=== PATIENT | male | born 1935 | race Caucasian/White ===

== ENCOUNTER 2020-04-15 05:31 | Day surgery (SDC) | payer MEDICARE ==
[2020-04-15] MEDS ORDERED: Sodium Chloride 0.9% 1,000 ML IV SCH (06:15)
[2020-04-15] MEDS ORDERED: fentaNYL 100 MCG/2 ML SDV ONE (07:06)
[2020-04-15] MEDS ORDERED: Propofol 200 MG/20 ML SDV ONE (07:06)
[2020-04-15] MEDS ORDERED: Midazolam 1 MG/ML 2 ML SDV ONE (07:06)
--- NOTE | 2020-04-15 09:48 | PROC ---
DATE OF PROCEDURE: SURGEON: Marcos Rick MD INDICATION: Jeremiah is an 84-year-old male who comes in for a colonoscopy. He came into the office last week having bloody stools, passing significant amount of red blood. He has never had a colonoscopy before. He comes in for colonoscopy. This is done as an outpatient in the OR. PROCEDURE IN DETAIL: Anesthesia was given by nurse management advisor. During the procedure, we used 2 mg of Versed, 100 mcg of fentanyl, and 130 mg of propofol. The Olympus 180AL scope was used, was placed into the rectum and advanced under direct vision. We did evaluation of the prostate. The prostate was grade 3/6, symmetrical, and soft. The tube was placed into the rectum and advanced under direct vision. At 25 cm, noted a mass. We did not get past that and eventually got to the cecum using the turbo on the scope as well as external pressure from the nurse. Upon retraction of the tube, noted no lesions or ulcerations. No abnormality until we got at 25 cm. This, I am sure, is a carcinoma. This was biopsied. Then, we fully retracted the tube, found another lesion at 5 cm. This was biopsied as well. The tube was removed. The patient tolerated the procedure well. Preop: GI blood. Postop: Lesion at 25 cm and 5 cm both appear to be carcinoma. Biopsy is pending. I feel that a colon resection is imperative. I will wait for the biopsies. Marcos Rick MD /[id number]
== END 2020-04-15 09:01 | disposition home or self-care (01) ==
LOC: JP.SDS 05:31
PROVIDERS: ATTEND Internal Medicine
DX: C18.9 Malignant neoplasm of colon, unspecified (principal); D12.8 Benign neoplasm of rectum; I11.0 Hypertensive heart disease with heart failure; I50.9 Heart failure, unspecified; Z87.891 Personal history of nicotine dependence
CPT/HCPCS: 45380; J2250; J2704; J3010; J7030; 88305; 88341

== ENCOUNTER 2020-04-27 10:26 | Inpatient (IN) | payer MEDICARE ==
[~2020-04-27 10:26] MED LIST: Bupivacaine 0.5% 50 ML MDV ONE; Lidocaine 1% with EPINEPHrine 1:100,000 50 ML MDV ONE; Meropenem 500 MG SDV ONE
[2020-04-27] MEDS ORDERED: Scopolamine 1.5 MG Transdermal Patch TOP SCH (11:00)
[2020-04-27] MEDS ORDERED: Acetaminophen 500 MG Tab PO ONE (11:00)
[2020-04-27] MEDS ORDERED: Dextrose 5%-Lactated Ringers 1,000 ML IV SCH (11:30)
[2020-04-27] MEDS ORDERED: Neostigmine Methylsulfate 1 MG/ML 5 ML Syringe ONE (11:53)
[2020-04-27] MEDS ORDERED: Rocuronium 50 MG/5 ML Vial ONE ×2 (11:53→18:59)
[2020-04-27] MEDS ORDERED: Glycopyrrolate 0.2 MG/ML 5 ML MDV ONE (11:53)
[2020-04-27] MEDS ORDERED: Succinylcholine 200 MG/10 ML MDV ONE (11:53)
[2020-04-27] MEDS ORDERED: Ondansetron 4 MG/2 ML SDV ONE (11:53)
[2020-04-27] MEDS ORDERED: Propofol 200 MG/20 ML SDV ONE (11:53)
[2020-04-27] MEDS ORDERED: fentaNYL 250 MCG/5 ML SDV ONE (11:53)
[2020-04-27] MEDS ORDERED: Dexamethasone 4 MG/ML SDV ONE (11:53)
[2020-04-27] MEDS ORDERED: Naloxone 0.4 MG/ML SDV IVPUSH PRN (12:00)
[2020-04-27] MEDS ORDERED: Sodium Chloride 0.9% 10 ML ONE (12:39)
[2020-04-27] MEDS ORDERED: cefOXitin 2 GM in Sodium Chloride 0.9% 50 ML IV ONE (12:45)
[2020-04-27] MEDS ORDERED: Lactated Ringers 1,000 ML ONE (13:13)
[2020-04-27] MEDS ORDERED: Ondansetron 4 MG/2 ML SDV IVPUSH PRN (17:00)
[2020-04-27] MEDS ORDERED: hydrOXYzine HCL 100 MG/2 ML SDV IM PRN (17:00)
[2020-04-27] MEDS: SCOPOLAMINE PATCH CHECK TOP SCH (17:19)
[2020-04-27] MEDS: Dextrose 5%-Lactated Ringers 1,000 ML IV SCH (17:23)
[2020-04-27] MEDS: cefOXitin 2 GM in Sodium Chloride 0.9% 50 ML IV SCH (17:24)
[2020-04-27] MEDS: Pantoprazole 40 MG Vial IVPUSH SCH (17:26)
[2020-04-27] MEDS: Acetaminophen 325 MG Tab PO SCH (17:27)
[2020-04-27] MEDS: fentaNYL 2,500 MCG in Sodium Chloride 0.9% 200 ML EPIDUR SCH (17:38)
[2020-04-27] MEDS: Tamsulosin 0.4 MG Cap.ER PO SCH (20:22)
[2020-04-27] MEDS: Carvedilol 12.5 MG Tab PO SCH (20:22)
[2020-04-27] MEDS: Albuterol/Ipratropium 3.0-0.5 MG/3 ML Neb Soln NEB PRN (20:57)
[2020-04-28] MEDS ORDERED: Furosemide 20 MG/2 ML VIAL IVPUSH ONE (00:15)
[2020-04-28] MEDS: cefOXitin 2 GM in Sodium Chloride 0.9% 50 ML IV SCH ×2 (00:19→04:59)
[2020-04-28] MEDS: Acetaminophen 325 MG Tab PO SCH ×5 (00:21→23:59)
[2020-04-28] MEDS: Dextrose 5%-Lactated Ringers 1,000 ML IV SCH ×3 (00:22→18:11)
[2020-04-28] MEDS: fentaNYL 2,500 MCG in Sodium Chloride 0.9% 200 ML EPIDUR SCH (07:37)
[2020-04-28] MEDS: Bisacodyl 5 MG Tab PO SCH ×2 (08:13→20:24)
[2020-04-28] MEDS: Spironolactone 25 MG Tab PO SCH (08:14)
[2020-04-28] MEDS: Aspirin 325 MG Tab.EC PO SCH (08:14)
[2020-04-28] MEDS: Sennosides 8.6 MG Tab PO SCH ×2 (08:14→20:30)
[2020-04-28] MEDS: Carvedilol 12.5 MG Tab PO SCH ×2 (08:14→20:28)
[2020-04-28] MEDS: SCOPOLAMINE PATCH CHECK TOP SCH (08:17)
[2020-04-28] MEDS: Ibuprofen 400 MG Tab PO SCH ×3 (08:31→20:26)
[2020-04-28] MEDS ORDERED: Furosemide 40 MG/4 ML VIAL IVPUSH ONE ×2 (10:00→20:00)
--- NOTE | 2020-04-28 11:40 | CRLCR ---
Indication: Cough. Low oxygen saturation. Technique: Chest 2 views Comparison: None Findings: Cardiovascular and mediastinum: Heart size and vasculature are normal in caliber and appearance. Lungs and pleural spaces: Small infiltrate may be present in the lateral right lung base. Mild bibasilar scarring or atelectasis. Upper lungs are clear. No significant effusion and no pneumothorax. Bones and soft tissues: No significant findings. Impression: Possible right lower lobe pneumonia. Dictated by Eugenio Edwards MD @ 04/28/2020 11:38:57 AM Dictated by: Eugenio Edwards MD @ 04/28/2020 11:39:03 (Electronically Signed)
[2020-04-28] MEDS ORDERED: Levofloxacin/Dextrose 5%-Water 500 MG in Premix Bag 1 BAG IV SCH (13:00)
[2020-04-28] MEDS: Piperacillin/Tazobactam/Dext 3.375 GM in Premix Bag 1 BAG IV SCH ×3 (13:38→23:59)
[2020-04-28] MEDS: Albuterol/Ipratropium 3.0-0.5 MG/3 ML Neb Soln NEB PRN (14:19)
[2020-04-28] MEDS: Pantoprazole 40 MG Vial IVPUSH SCH (18:15)
[2020-04-28] MEDS: Tamsulosin 0.4 MG Cap.ER PO SCH (20:26)
[2020-04-29] MEDS: Ibuprofen 400 MG Tab PO SCH (02:17)
[2020-04-29] MEDS: Dextrose 5%-Lactated Ringers 1,000 ML IV SCH ×3 (05:07→23:13)
[2020-04-29] MEDS: Acetaminophen 325 MG Tab PO SCH ×3 (05:07→18:11)
[2020-04-29] MEDS: Albuterol/Ipratropium 3.0-0.5 MG/3 ML Neb Soln NEB PRN (05:07)
[2020-04-29] MEDS: Piperacillin/Tazobactam/Dext 3.375 GM in Premix Bag 1 BAG IV SCH ×3 (05:41→18:11)
[2020-04-29] MEDS ORDERED: Meropenem 500 MG SDV ONE (06:35)
[2020-04-29] MEDS ORDERED: Lidocaine 1% with EPINEPHrine 1:100,000 50 ML MDV ONE (06:35)
[2020-04-29] MEDS ORDERED: Bupivacaine 0.5% 50 ML MDV ONE (06:35)
[2020-04-29] MEDS ORDERED: Propofol 200 MG/20 ML SDV ONE (06:56)
[2020-04-29] MEDS ORDERED: Ropivacaine 30 ML, dexAMETHasone 8 MG, EPINEPHrine 0.4 MG, Sodium Chloride 0.9% 47.6 ML NERVRT SCH ×4 (07:15)
[2020-04-29] MEDS ORDERED: Albuterol/Ipratropium 3.0-0.5 MG/3 ML Neb Soln NEB ONE (07:49)
[2020-04-29] MEDS ORDERED: Furosemide 20 MG/2 ML VIAL ONE (08:52)
[2020-04-29] MEDS ORDERED: Albuterol/Ipratropium 3.0-0.5 MG/3 ML Neb Soln INH PRN (08:56)
[2020-04-29] MEDS ORDERED: Furosemide 20 MG/2 ML VIAL IV ONE ×2 (09:00→16:00)
[2020-04-29] MEDS ORDERED: FLU Vacc QV2020-21(65YR UP)/PF 240 MCG/0.7 ML Syringe IM ONE (09:00)
--- NOTE | 2020-04-29 09:02 | PN ---
DATE OF SERVICE: 04/29/2020 SUBJECTIVE: Jeremiah is n.p.o. He will be going down for delayed primary closure. Vital signs have been stable. Pain is controlled. He has no questions or concerns. OBJECTIVE: GENERAL: Jeremiah is a pleasant 85-year-old male. VITAL SIGNS: TPR is 96.3; 87; 18; blood pressure 100/54. HEENT: Negative. NECK: Supple. HEART: Regular rate and rhythm. LUNGS: Clear. ABDOMEN: Dressings dry and intact. Abdominal binder is on. EXTREMITIES: Without peripheral edema. ASSESSMENT: Exploratory laparotomy with: 1. Rectosigmoid colon resection. 2. Mobilization of omentum into pelvis. POSTOPERATIVE DIAGNOSES: 1. Distal sigmoid colon cancer. 2. Distal colon sessile polyp. 3. Date of procedure: 04/27/2020. Surgeon: Jesus Ortega MD. PLAN: Orders will be written after delayed primary closure. Marbella Neil PA-C /[id number]
[2020-04-29] MEDS: Spironolactone 25 MG Tab PO SCH (09:13)
[2020-04-29] MEDS: Aspirin 325 MG Tab.EC PO SCH (09:15)
[2020-04-29] MEDS: Bisacodyl 5 MG Tab PO SCH ×2 (09:15→21:19)
[2020-04-29] MEDS: SCOPOLAMINE PATCH CHECK TOP SCH (09:16)
[2020-04-29] MEDS: Sennosides 8.6 MG Tab PO SCH ×2 (09:17→21:23)
[2020-04-29] MEDS: Carvedilol 12.5 MG Tab PO SCH ×2 (09:18→21:19)
[2020-04-29] MEDS: Albuterol/Ipratropium 3.0-0.5 MG/3 ML Neb Soln NEB SCH ×3 (10:04→21:22)
[2020-04-29] MEDS: Levofloxacin/Dextrose 5%-Water 250 MG in Premix Bag 1 BAG IV SCH (13:45)
[2020-04-29] MEDS: Pantoprazole 40 MG Vial IVPUSH SCH (18:11)
--- NOTE | 2020-04-29 19:26 | PN ---
DATE OF SERVICE: 04/28/2020 The patient has been afebrile with stable vital signs. Oxygenation remains somewhat marginal, but his preoperative oxygenation had an O2 saturation in the low 90s on room air. We will continue to work with maximizing pulmonary toilet. His urine output is a little bit low overnight, and we will check some labs this morning and back down the IV rate later in the day. Otherwise, he is getting good pain control with the epidural, we will leave that in for today. Plan to proceed with a delayed primary closure of the abdominal incision tomorrow, perhaps getting the epidural out at that time. If he is getting extremely good pain control, I will leave that in an extra day along with Rocha catheter, but we will make that decision tomorrow morning at the time of the closure. Jesus Ortega MD /[id number]
--- NOTE | 2020-04-29 19:32 | PN ---
DATE OF SERVICE: 04/29/2020 The patient has been afebrile with stable vital signs. We did turn off the epidural catheter overnight and this seemed to help urine output and his creatinine did bump up to 2.1. His BNP is also quite high and we will give him some Lasix this morning and repeat it this afternoon. Otherwise, uneventful wound closure. He has a little bit of wheezing and we will start some scheduled DuoNebs as opposed to p.r.n. and restart the regular diet. Check some labs in the morning. We will leave the Rocha catheter in for today to monitor urine output. Jesus Ortega MD /[id number]
[2020-04-29] MEDS: Tamsulosin 0.4 MG Cap.ER PO SCH (21:19)
[2020-04-30] MEDS: Piperacillin/Tazobactam/Dext 3.375 GM in Premix Bag 1 BAG IV SCH ×4 (00:13→17:42)
[2020-04-30] MEDS: Acetaminophen 325 MG Tab PO SCH ×3 (00:29→05:53)
--- NOTE | 2020-04-30 04:37 | CRLCR ---
INDICATION: Shortness of breath, possible pneumonia TECHNIQUE: PA and lateral views of the chest COMPARISON: PA and lateral chest radiographs 04/28/2020 FINDINGS: There is stable elevation of the right hemidiaphragm. Subtle right lung base opacity is slightly improved. Airspace opacity is noted in the left lung base. There is no pleural effusion or pneumothorax. The cardiomediastinal silhouette is stable. There is nonspecific mild air distention of the visualized colon. IMPRESSION: 1. Subtle right lung base opacity is slightly improved, may represent atelectasis. Mild left lung base opacity. Consider further evaluation with CT. 2. Nonspecific air distention of the hepatic flexure of the colon. Dictated by Samara Haynes MD @ Apr 30 2020 4:35AM Signed by Dr. Samara Haynes @ Apr 30 2020 4:35AM
[2020-04-30] MEDS ORDERED: Furosemide 40 MG/4 ML VIAL IVPUSH ONE (06:35)
[2020-04-30] MEDS: Albuterol/Ipratropium 3.0-0.5 MG/3 ML Neb Soln NEB SCH ×4 (07:18→21:11)
[2020-04-30] MEDS ORDERED: Acetaminophen 325 MG Tab PO PRN (07:33)
[2020-04-30] MEDS: Sennosides 8.6 MG Tab PO SCH ×2 (08:34→21:18)
[2020-04-30] MEDS: Spironolactone 25 MG Tab PO SCH (08:34)
[2020-04-30] MEDS: Aspirin 325 MG Tab.EC PO SCH (08:34)
[2020-04-30] MEDS: Bisacodyl 5 MG Tab PO SCH ×2 (08:34→21:18)
[2020-04-30] MEDS: Carvedilol 12.5 MG Tab PO SCH ×2 (08:34→21:14)
[2020-04-30] MEDS: SCOPOLAMINE PATCH CHECK TOP SCH (08:35)
--- NOTE | 2020-04-30 08:45 | PN ---
DATE OF SERVICE: 04/30/2020 SUBJECTIVE: Jeremiah had delayed primary closure yesterday. He did pass a red bloody bowel movement. Vital signs have been stable. He reports feeling weak. Pain is controlled. Labs this morning, white count is 11.7, hemoglobin is 12.5, potassium 4.4. His BMP went up to 6514, magnesium is 1.6. He does report that he is short of breath. Lasix 40 mg IV was given right after report. REVIEW OF SYSTEMS: Remainder of review of systems negative for any pertinent positives and negatives. OBJECTIVE: GENERAL: Jeremiah is a pleasant 85-year-old male. He is alert. Reports being short of breath. VITAL SIGNS: TPR at 0700, 97.9, 97, 20, blood pressure 145/68. O2 is 88% on 5 L of O2. HEENT: Negative. NECK: Supple. HEART: Regular rate and rhythm. LUNGS: Clear, but respirations are rapid and shallow. ABDOMEN: Dressings dry and intact. AGUEDA drains have put out 285 and 485 respectively of a light pink drainage. EXTREMITIES: Without peripheral edema. ASSESSMENT: 1. Delayed primary closure, 04/29/2020. 2. Exploratory laparotomy with: a. Rectosigmoid colon resection. b. Mobilization of omentum into pelvis. POSTOPERATIVE DIAGNOSES: 1. Distal sigmoid colon cancer. 2. Distal colon sessile polyp. 3. Date of procedure: 04/27/2020. Surgeon: Jesus Ortega MD. PLAN: 1. Lasix 20 mg at 1400. 2. Leave Rocha catheter in for accurate intake and output. 3. Check CBC, CMP, BNP, and phos in a.m. 4. Discontinue both AGUEDA drains. 5. Change Tylenol to p.r.n. 6. Magnesium 2 g IV q.6 hours x48 hours. 7. We will evaluate p.r.n. or in a.m. 8. Ask in a.m. regarding antibiotic therapy, appears not to be pneumonia, but will continue antibiotic as a clinical course. Marbella Neil PA-C /[id number]
[2020-04-30] MEDS: Magnesium Sulfate/Water 2 GM in Premix Bag 1 BAG IV SCH ×3 (09:10→21:07)
[2020-04-30] MEDS: Pantoprazole 40 MG Tab.CR PO SCH (11:32)
[2020-04-30] MEDS ORDERED: Dextrose 5%-Lactated Ringers 1,000 ML IV SCH (12:23)
[2020-04-30] MEDS ORDERED: Furosemide 20 MG/2 ML VIAL IVPUSH ONE (14:00)
[2020-04-30] MEDS: Levofloxacin/Dextrose 5%-Water 250 MG in Premix Bag 1 BAG IV SCH (14:33)
[2020-04-30] MEDS ORDERED: FLU Vacc QV2020-21(65YR UP)/PF 240 MCG/0.7 ML Syringe IM ONE (15:00)
[2020-04-30] MEDS: Tamsulosin 0.4 MG Cap.ER PO SCH (21:16)
[2020-05-01] MEDS: Piperacillin/Tazobactam/Dext 3.375 GM in Premix Bag 1 BAG IV SCH ×2 (00:45→05:48)
[2020-05-01] MEDS: Magnesium Sulfate/Water 2 GM in Premix Bag 1 BAG IV SCH ×4 (02:46→22:13)
[2020-05-01] MEDS ORDERED: Furosemide 20 MG/2 ML VIAL IVPUSH STA (06:57)
[2020-05-01] MEDS: SCOPOLAMINE PATCH CHECK TOP SCH (08:07)
[2020-05-01] MEDS: Carvedilol 12.5 MG Tab PO SCH ×2 (08:09→22:16)
[2020-05-01] MEDS: Spironolactone 25 MG Tab PO SCH (08:09)
[2020-05-01] MEDS: Aspirin 325 MG Tab.EC PO SCH (08:09)
[2020-05-01] MEDS: Pantoprazole 40 MG Tab.CR PO SCH (08:09)
[2020-05-01] MEDS: Albuterol/Ipratropium 3.0-0.5 MG/3 ML Neb Soln NEB SCH ×4 (08:14→22:19)
[2020-05-01] MEDS: Potassium Chloride 20 MEQ Tab.ER PO SCH (09:07)
--- NOTE | 2020-05-01 10:15 | PN ---
DATE OF SERVICE: 05/01/2020 SUBJECTIVE: Jeremiah is a pleasant 85-year-old male. He has been afebrile. He currently is sitting up in the chair. Oral intake 896. Urine output via Rocha catheter is 4300. AGUEDA drains put out 90 mL and 40 mL respectively. He has had 5 bowel movements. Vital signs have been afebrile with his O2 saturations by pulse oximetry on room air at rest is 87%. He has been on 2 L to 3 L in the past 24 hours and O2 saturations by pulse oximetry is 90% to 92%. He has been diuresed, and this has helped with his symptomatic shortness of breath. He does have COPD and congestive heart failure with an ejection fraction of 28%. LABORATORY DATA: Hemoglobin 13.1, sodium 135, his creatinine is 2, GFR is 32, and BNP is down from 6514 to 3771. REVIEW OF SYSTEMS: Remainder of review of systems is negative for any pertinent positives and negatives. OBJECTIVE: GENERAL: Jeremiah is a pleasant 85-year-old male. He is sitting up in the chair as stated. Alert, orientated. GENERAL: TPR at 0700 is 96.9, 94, and 18. Blood pressure 113/72, O2 is 92% by pulse oximetry on 3 L of nasal cannula. HEENT: Negative. NECK: Supple. HEART: Regular rate and rhythm. LUNGS: Clear. ABDOMEN: Dressing dry and intact. AGUEDA drains x2 intact. EXTREMITIES: Without peripheral edema. ASSESSMENT: 1. Delayed primary closure 04/29/2020. 2. Exploratory laparotomy with: a. Rectosigmoid colon resection. b. Mobilization of omentum into pelvis. 3. Postoperative diagnoses: a. Distal sigmoid colon cancer. b. Distal colon sessile polyp. c. Date of procedure 04/27/2020. Surgeon: Jesus Ortega MD. 4. Congestive heart failure, ejection fraction 28%. 5. Chronic obstructive pulmonary disease. PLAN: 1. Evaluate for home O2. The patient does qualify due to O2 saturations by pulse oximetry of 87% at rest on room air. 2. Plan discharge in a.m. with home health care. 3. Discontinue Rocha catheter. 4. Discontinue Colace and Dulcolax tablets. 5. Saline lock IV. 6. Lasix 20 mg IV now and repeat 20 mg of IV at 1400. 7. Potassium chloride 40 mEq orally. 8. Check CBC, CMP, phos, and BNP in a.m. 9. Continue use of incentive spirometer. 10.We will evaluate p.r.n. or in a.m. Marbella Neil PA-C /[id number]
[2020-05-01] MEDS ORDERED: Furosemide 20 MG/2 ML VIAL IVPUSH ONE ×2 (14:00)
[2020-05-01] MEDS: Tamsulosin 0.4 MG Cap.ER PO SCH (22:16)
[2020-05-02] MEDS: Magnesium Sulfate/Water 2 GM in Premix Bag 1 BAG IV SCH (03:02)
[2020-05-02] MEDS: Albuterol/Ipratropium 3.0-0.5 MG/3 ML Neb Soln NEB SCH ×4 (07:51→20:54)
[2020-05-02] MEDS ORDERED: Potassium Chloride 20 MEQ Tab.ER PO ONE ×2 (09:00→14:00)
[2020-05-02] MEDS ORDERED: Tamsulosin 0.4 MG Cap.ER PO ONE (09:00)
[2020-05-02] MEDS: SCOPOLAMINE PATCH CHECK TOP SCH (09:21)
[2020-05-02] MEDS: Pantoprazole 40 MG Tab.CR PO SCH (09:22)
[2020-05-02] MEDS: Aspirin 325 MG Tab.EC PO SCH (09:22)
[2020-05-02] MEDS: Carvedilol 12.5 MG Tab PO SCH ×2 (09:22→20:50)
[2020-05-02] MEDS: Potassium Chloride 20 MEQ Tab.ER PO SCH (09:22)
[2020-05-02] MEDS: Spironolactone 25 MG Tab PO SCH (09:23)
[2020-05-02] MEDS: Furosemide 20 MG/2 ML VIAL IVPUSH SCH ×2 (09:23→17:57)
[2020-05-02] MEDS: Tamsulosin 0.4 MG Cap.ER PO SCH (20:50)
[2020-05-03] MEDS: Albuterol/Ipratropium 3.0-0.5 MG/3 ML Neb Soln NEB SCH ×2 (07:25→10:32)
[2020-05-03] MEDS ORDERED: Furosemide 20 MG/2 ML VIAL IVPUSH ONE (09:00)
[2020-05-03] MEDS ORDERED: Tamsulosin 0.4 MG Cap.ER PO ONE (09:00)
[2020-05-03] MEDS: Potassium Chloride 20 MEQ Tab.ER PO SCH (09:24)
[2020-05-03] MEDS: Pantoprazole 40 MG Tab.CR PO SCH (09:24)
[2020-05-03] MEDS: Carvedilol 12.5 MG Tab PO SCH (09:25)
[2020-05-03] MEDS: Spironolactone 25 MG Tab PO SCH (09:25)
[2020-05-03] MEDS: Aspirin 325 MG Tab.EC PO SCH (09:25)
--- NOTE | 2020-05-03 12:26 | PN ---
DATE OF SERVICE: 05/02/2020 The patient has been afebrile with stable vital signs. Breathing looks like it has been better. BNP is down to 2579, which I suspect may be more or less near his baseline. he was agitated regarding difficulty with initiating urination. Bladder scan had in excess of 800 mL and Rocha catheter was placed and he is feeling much more comfortable. We will increase his Flomax to b.i.d. dose and try getting the Rocha catheter out tomorrow. If he is still retaining urine, we may be able to send him home with a catheter in place for a few days. Otherwise, we will continue to augment some diuresis and supplement his potassium orally. Jesus Ortega MD /[id number]
--- NOTE | 2020-05-03 12:38 | OR ---
DATE OF PROCEDURE: 04/27/2020 SURGEON: Jesus Ortega MD PREOPERATIVE DIAGNOSES: 1. Sigmoid colon carcinoma. 2. Polypoid lesion in the lower rectum. POSTOPERATIVE DIAGNOSES: 1. Sigmoid colon carcinoma. 2. Polypoid lesion in the lower rectum. OPERATIVE PROCEDURES: Exploratory laparotomy with: 1. Rectosigmoid colon resection with coloproctostomy (50025). 2. Mobilization of omentum into the pelvis to displace small bowel in the event of indications for postoperative radiation treatment (18396). ANESTHESIA: General plus epidural. CORRECTIONAL OFFICER CHIEF: Marbella Neil PA-C INDICATIONS FOR PROCEDURE: This is an 85-year-old male recently presenting with some rectal bleeding. Colonoscopy was obtained, which showed a carcinoma in the [id number] sigmoid colon. The patient also had a polypoid lesion fairly low within the rectum, which is quite mobile and likely related to a polyp rather than an invasive carcinoma. The plan will be to proceed with low anterior resection with coloproctostomy. We will obviously aim to get below the polypoid lesion seen distally. Otherwise, potential risks of the procedure, including bleeding, infection, and leaks from GI tract closure that might require conversion to a colostomy as well as the possibility of cardiopulmonary, septic, or hemorrhagic complications leading to , were discussed, and the patient wishes to proceed. DETAILS OF PROCEDURE: The patient was taken to the operating room after general endotracheal anesthesia was induced. A Rocha catheter was inserted. A digital rectal exam was undertaken at that point, which confirmed the location of the polypoid lesion. This was not palpable preoperatively when the patient was awake but was easily palpable with the patient now relaxed and appeared to be very mobile. With regard to the underlying musculature, appeared to be remaining mucosal lesion amenable to resection with a relatively small margin distal to it. With the patient in lithotomy position, the abdomen was prepped and draped. A midline incision from the umbilicus down to the pubis was made and carried down through the full thickness of the abdominal wall. Upon entering the peritoneal cavity, general exploration was undertaken. The mass in the junction near the distal portions of the sigmoid colon was easily palpable. There did not appear to be significant lymphadenopathy within the superior hemorrhoidal chain leading to that area or within the remainder of the mesentery or periaortic area. There was no evidence of peritoneal carcinomatosis, and the liver appeared to be free of any metastatic disease. At this point, roughly 15 cm proximal to the mass, the sigmoid colon was divided with a ARLENE stapler. The mesentery was then sequentially freed up and divided with ARLENE julien, taking any superior hemorrhoidal vessel and its associated nodes flush with its take-off from the left colic artery. This then allowed a mesorectal-type dissection further into the rectum posteriorly and laterally with lateral stalks being divided with ARLENE julien as well. We then came down to the lower rectum, and the rectum was mobilized circumferentially to the level of the pelvic floor. The digital rectal exam was then once again performed. The mucosal lesion tended to prolapse behind where the staple line would go across. Given this, a small enterotomy was made in the rectum, and this was grasped from that vantage point, grasping the polyp and pulling it upward. This then allowed a staple line to be configured below that, and that was constructed with several firings of ARLENE black loads, and then the specimen removed from the field. Endoscopic examination of the distal-most rectum below the staple line showed evidence of a persistent polyp disease and the specimen off the field was then opened, and a small margin of normal-appearing mucosa was present below the mucosal lesion, indicating a satisfactory margin had been established. At this point, the anvil of a 28 mm EEA stapler was placed in the nonopened end of the sigmoid colon, which was then re-stapled and the anvil brought out through the most dependent portion of that, and the peritoneum to the lateral aspect of the more proximal sigmoid colon was divided, which allowed the divided sigmoid colon to drop into the pelvis with no tension, more or less laid easily up against the divided rectum through the transanal portion of the main body, the EEA stapler was brought up and connected to the anvil and fired, thus creating a coloproctostomy. The distal staple line was then sent separately as a final distal margin. At this point, no further problems were noted. The anastomosis was reinforced with some fibrin sealant and irrigated with a meropenem-containing saline solution. The endoscope was passed into the rectum, and with air being insufflated into the rectum, the anastomosis was easily visualized, and there were no air bubbles noted, i.e., anastomosis appeared to be intact. Two Mark Anthony-Sanchez drains were then placed through stab wounds, one on the right and one on the left abdomen, taken down and across the coloproctostomy. The omentum was mobilized down into the pelvis as well in the event that at some point the patient may require postoperative radiation treatment, and the omentum was tacked down there with some 3-0 Vicryl stitch. The posterior peritoneum as well as the was then closed with a #2 Vicryl stitch and the anterior fascia with a #2 Vicryl stitch as well. The skin and subcutaneous tissue were felt to be high risk for wound infection and were, therefore, packed open with iodoform gauze for planned delayed primary closure in 48 to 72 hours. Of note, prior to the general anesthetic, the patient had an epidural catheter placed, and the epidural infusion was maintained through the procedure. Physician assistant media buyer Marbella Neil played an essential role in assisting in this case, helping to position the patient and retract structures as needed as well as suturing and stapling when indicated. Her presence improved patient safety and decreased operative time. Jesus Ortega MD /[id number]
--- NOTE | 2020-05-03 12:56 | DISCH ---
FINAL DIAGNOSES: 1. Sigmoid colon carcinoma. 2. Adenomatous polyp distal rectum. 3. Advanced chronic obstructive pulmonary disease. 4. Chronic congestive heart failure. 5. Postoperative urinary retention. OPERATIVE PROCEDURES: Done on 04/27, exploratory laparotomy with: 1. Rectosigmoid colon resection. 2. Mobilization of omentum into pelvis. 3. Then on 04/29, delayed primary closure of abdominal incision. SUMMARY: This is an 85-year-old, recently presenting with some rectal bleeding. Colonoscopy found a carcinoma in the mid to distal sigmoid colon and a secondary adenomatous polyp in the distal rectum. The patient underwent resection of those on 04/27. The final pathology showed the primary tumor which was near the junction of the mid and distal thirds of the sigmoid colon, it was full-thickness and noted to be pericolonic fat, but all of the above lymph nodes were negative for metastatic disease. He had no evidence of metastatic disease elsewhere in the abdomen. The margin on the distal polyp was cleared and that remained an adenomatous polyp on final pathology, i.e., it was not a carcinoma. Postoperatively, the patient had some issues with fluid overload which was treated with diuresis and he now is doing well from respiratory standpoint. He will be sent home on his usual medications plus Flomax 0.4 mg at bedtime. retention postoperatively, the bladder catheter was removed this morning. If he is unable to void or if he has large amount of retained urine at the time of discharge, we would at that point then place Rocha catheter and leave that in until followup appointment. Followup appointment will be with Dr. Ortega at [facility] on 05/06/2020, and we will arrange Medical Oncology consultation at that time as well.
--- NOTE | 2020-05-03 15:19 | OR ---
DATE OF PROCEDURE: 04/29/2020 SURGEON: Jesus Ortega MD PREOPERATIVE DIAGNOSIS: Open abdominal incision. POSTOPERATIVE DIAGNOSIS: Open abdominal incision. OPERATIVE PROCEDURE: Delayed primary closure of open abdominal incision. ANESTHESIA: Local plus IV sedation. INDICATIONS FOR PROCEDURE: This is an 85-year-old status post rectosigmoid resection 2 days ago. At that time, he was felt to be at high risk for wound infection if primary closure of the skin was accomplished, and the skin and subcutaneous tissue were packed open for a planned delayed primary closure at this time. Potential risks including bleeding and infection were reviewed, and the patient wishes to proceed. DETAILS OF PROCEDURE: The patient was taken to the operating room, placed in a supine position, sitting somewhat upright so as to limit aspiration risk. The patient was given IV sedation. The operative dressing was taken down and wound was inspected and found to be clean. Wound was then prepped and draped and anesthetized with 1% lidocaine mixed with Marcaine, irrigated with meropenem-containing saline solution. Bilateral transversus abdominis plane blocks were then placed with ultrasound guidance. The subcutaneous tissue was then approximated with 2 layers of 3-0 and 4-0 Vicryl stitch deep and the skin with julien. Dressing was applied. The patient was taken to the recovery room in satisfactory condition. There were no evident complications. Jesus Ortega MD /[id number]
== END 2020-05-03 11:15 | disposition home or self-care (01) | DRG 331 ==
LOC: JP.SDS 10:26 → JP.SDSSCHI 10:26 → JP.MS 15:15 → EDSTATUS 15:55
PROVIDERS: ADMIT Surgery; ATTEND Surgery
PROC: 0DTN0ZZ Resection of Sigmoid Colon, Open Approach (ICD-10-PCS; principal; 2020-04-27)
PROC: 0DBP0ZZ Excision of Rectum, Open Approach (ICD-10-PCS; principal; 2020-04-27)
PROC: 0D1N0ZP Bypass Sigmoid Colon to Rectum, Open Approach (ICD-10-PCS; principal; 2020-04-27)
PROC: 0WQF0ZZ Repair Abdominal Wall, Open Approach (ICD-10-PCS; 2020-04-29)
PROC: 3E02340 Introduction of Influenza Vaccine into Muscle, Percutaneous Approach (ICD-10-PCS; 2020-04-29)
DX: C18.7 Malignant neoplasm of sigmoid colon (principal); D12.8 Benign neoplasm of rectum; J44.9 Chronic obstructive pulmonary disease, unspecified; I50.9 Heart failure, unspecified; R33.9 Retention of urine, unspecified; I11.0 Hypertensive heart disease with heart failure; Z23 Encounter for immunization
CPT/HCPCS: 36415; 51702; 51798; 71046; 80048; 80053; 83735; 83880; 84100; 85025; 85027; 88112; 88305; 88309; 90662; 94640; 94762; 97110-GP; 97162-GP; 97530-GP; 97535-GP; A9270-GY; C9113; J0171; J0330; J0694; J1100; J1940; J1956; J2185; J2405; J2543; J2704; J2710; J2795; J3010; J3475; J3490; J7050; J7120; J7121; J7620-GY